=== PATIENT | female | born 1955 | race Two or more races ===

== ENCOUNTER 2017-04-07 22:36 | Emergency (ER) | payer MEDICAID ==
[~2017-04-07] VITALS: Ht 160 cm; Wt 68.0 kg
[2017-04-07] MEDS ORDERED: LORATADINE 10 MG TABLET (23:08)
[2017-04-07] MEDS ORDERED: NEXIUM 20 MG (23:08)
[2017-04-07] MEDS ORDERED: BONIVA 150 MG (23:08)
[2017-04-07] MEDS ORDERED: ZOLOFT 50 MG TABLET (23:08)
[2017-04-07] MEDS ORDERED: VASCEPA 1 GM CAPSULE (23:08)
[2017-04-07] MEDS ORDERED: SYNTHROID 25 MCG (23:08)
[2017-04-07] MEDS ORDERED: TRAZODONE 50 MG TABLET (23:08)
[2017-04-07] MEDS ORDERED: ASPIRIN EC 81 MG TABLET (23:08)
[2017-04-07] MEDS ORDERED: BROMOCRIPTINE 2.5 MG TABLET (23:08)
[2017-04-07] MEDS ORDERED: LIPITOR 10 MG (23:08)
[2017-04-07] MEDS ORDERED: VOLTAREN 1% GEL (23:08)
--- NOTE | 2017-04-07 23:14 | NUR ---
pt refused medication, notified
[2017-04-07] MEDS ORDERED: ACETAMINOPHEN 325 MG TABLET PO ONE (23:15)
[2017-04-07] MEDS ORDERED: ACETAMINOPHEN 325 MG TABLET ONE (23:26)
--- NOTE | 2017-04-08 00:20 | NUR ---
After much discussion pt refused xray. notified. Pt stable for discharge per MD. Pt given ACI. Pt verbalized understanding of dc instructions. Pt ambulated out of ER with steady gait.
[2017-04-08 00:51] VITALS: BP 136/80
== END 2017-04-08 00:20 | disposition home or self-care (01) ==
LOC: ER 22:37
DX: S90.31XA Contusion of right foot, initial encounter (principal); Z88.1 Allergy status to other antibiotic agents; Z79.82 Long term (current) use of aspirin; W20.8XXA Other cause of strike by thrown, projected or falling object, initial encounter; Y93.89 Activity, other specified; Y92.89 Other specified places as the place of occurrence of the external cause; Y99.8 Other external cause status
CPT/HCPCS: 99281; A4663